=== PATIENT | female | born 1930 ===

== ENCOUNTER 2017-07-25 09:11 | Outpatient (CLI) | payer OTHER ==
[~2017-07-25 09:11] MED LIST: NABUMETONE500 MG PO; PERCOCET 5/3251 TAB PO; PREVACID30 MG PO; VASOTEC2.5 MG PO; [UNRECOGNIZED DRUG - OTHER]
== END 2017-07-25 10:37 | disposition home or self-care (01) ==
LOC: SONOGRAMA 09:11
DX: E04.2 Nontoxic multinodular goiter (principal)